=== PATIENT | female | born 1980 | race Caucasian/White ===

== ENCOUNTER 2018-02-27 06:30 | Day surgery (SDC) | payer OTHER ==
[2018-02-27] MEDS ORDERED: Midazolam 2 MG/2 ML VIAL ONE (07:49)
[2018-02-27] MEDS ORDERED: Propofol 10 mg/ml Inj (20 ML) ONE (07:49)
[2018-02-27] MEDS ORDERED: cefOXitin IV 1 gm in Dextrose 1 GM/50 ML BAG IVPB ONE (07:52)
[2018-02-27] MEDS ORDERED: HYDROmorphone 0.5 mg/0.5 ml ISec IVP PRN (08:09)
--- NOTE | 2018-02-27 08:13 | PCM.SURG1 ---
Surgeon's Initial Post Op Note - Surgeon's Notes Surgeon: DR LIMA Alarm Mechanic: NONE Type of Anesthesia: General LMA Anesthesia Administered By: DR GAY Pre-Operative Diagnosis: 37YR AT 11WEEK INCOMPLETE ABORYTION Operative Findings: SEE THE OP REORT Post-Operative Diagnosis: SAMME Operation Performed: SUCTION D &C Specimen/Specimens Removed: POC. CHROMOSOME Estimated Blood Loss: EBL {In ML}: 20 Blood Products Given: N/A Drains Used: No Drains Post-Op Condition: Good Date of Surgery/Procedure: 02/27/18 Time of Surgery/Procedure: 09:00
[2018-02-27 10:26] VITALS: BP 94/51; PULSE 71; RESP 15; TEMP 97.7; O2SAT 100
--- NOTE | 2018-03-05 03:41 | OP ---
PROCEDURE DATE: 02/27/2018 PREOPERATIVE DIAGNOSIS: A 37-year-old 3, para 1 at 9 weeks' incomplete . POSTOPERATIVE DIAGNOSIS: A 37-year-old 3, para 1 at 9 weeks' incomplete . SURGEON: Micha Thakur MD [employer]TH [employer]ATION OFFICER: None. TYPE OF ANESTHESIA: General anesthesia. ANESTHESIOLOGIST: Jefe Will MD PROCEDURE PERFORMED: Suction dilation and curettage. DESCRIPTION OF PROCEDURE: After informed consent was obtained, the patient was brought to the operating room, placed on the table where general anesthesia was given. Once the anesthesia was found to be adequate, the patient was prepped and draped in the normal sterile fashion. Examination of the uterus revealed it to be 9 weeks' size. Cervix was open and dilated. Suction 6-Comor[place] flexible and 7-[place]or[place] catheter were used for suction of the products. Product of tissue was sent for the chromosome. Sharp curettage of the schmid of the uterus was done and it was sent to the pathology. After that suction was done again. Sharp curettage was done. Then, the tenaculum was taken out of the anterior lip of the cervix. The patient tolerated the procedure well. Lap, sponge, and instrument counts were correct x2. Micha Thakur MD
== END 2018-02-27 10:25 | disposition home or self-care (01) ==
LOC: C.SDS 06:30
PROVIDERS: ATTEND Obstetrics & Gynecology
DX: O03.4 Incomplete spontaneous abortion without complication (principal)
CPT/HCPCS: 59812; 88233; 88262; 88305; J0694; J2250; J2704; J3010